=== PATIENT | male | born 1940 | race Caucasian/White ===

== ENCOUNTER → 2023-05-27 08:23 | Outpatient (REF) | payer OTHER, SELFPAY | LOC: MRI 3T 08:23 | PROVIDERS: ATTENDING PHYSICIAN Internal Medicine Gastroenterology; FAMILY PHYSICIAN Internal Medicine | DX: K86.2 Cyst of pancreas (principal) | CPT/HCPCS: 74183; A9575 ==

== ENCOUNTER → 2023-08-05 08:36 | Outpatient (REF) | payer OTHER, SELFPAY | LOC: PAVMRI 08:36 | PROVIDERS: ATTENDING PHYSICIAN Orthopaedic Surgery; FAMILY PHYSICIAN Internal Medicine | DX: M25.562 Pain in left knee (principal) | CPT/HCPCS: 73721 ==

== ENCOUNTER → 2023-12-16 08:53 | Outpatient (REF) | payer OTHER, SELFPAY | LOC: MRI 3T 08:53 | PROVIDERS: ATTENDING PHYSICIAN Physician Assistant Surgical; FAMILY PHYSICIAN Internal Medicine | DX: M54.15 Radiculopathy, thoracolumbar region (principal) | CPT/HCPCS: 72148 ==

== ENCOUNTER → 2024-05-18 14:32 | Outpatient (REF) | payer OTHER, SELFPAY | LOC: EMG 14:32 | PROVIDERS: ATTENDING PHYSICIAN Internal Medicine | DX: G62.9 Polyneuropathy, unspecified (principal) | CPT/HCPCS: 95886; 95911 ==

== ENCOUNTER → 2024-09-07 10:44 | Outpatient (REF) | payer OTHER, SELFPAY ==
[2024-09-07 11:38] LABS: % Basophils 0.6 % (0-2); % Eosinophils 1.7 % (0-6); % Immature Granulocytes 0.3 % (0-0.5); % Lymphocytes 24.9 % (20.5-51.1); % Monocytes 8.6 % (1.7-9.3); % Neutrophils 63.9 % (42.2-75.2); Absolute Eosinophils 0.1 10^3/uL (0-0.7); Absolute Lymphocytes 1.6 10^3/uL (1.2-3.4); Absolute Monocytes 0.6 10^3/uL (0.1-0.6); Absolute Neutrophils 4.2 10^3/uL (1.4-6.5); Hematocrit 43.6 % (39.0-52.0); Hemoglobin 15.1 g/dL (13.0-18.0); Mean Corp Hgb Conc. 34.6 g/dL (33.0-37.0); Mean Corpuscular Hgb 33.1 pg (27.0-31.0); Mean Corpuscular Volume 95.6 fL (80.0-94.0); Mean Platelet Volume 10.1 fL (7.4-10.4); Nucleated Red Blood Cells % 0 % (-); Platelet Count 196 10^3/uL (130-400); Red Blood Cell Count 4.56 10^6/uL (4.70-6.10); Red Cell Dist. Width 12.5 % (11.5-14.5); White Blood Cell Count 6.6 10^3/uL (4.8-10.8)
[2024-09-07 11:48] LABS: ALT (SGPT) 42 U/L (0-50); AST (SGOT) 39 U/L (17-59); Albumin 4.6 g/dl (3.5-5.0); Alkaline Phosphatase 89 U/L (38-126); Blood Urea Nitrogen 44 mg/dl (9-20); Calcium 9.1 mg/dl (8.4-10.2); Carbon Dioxide 28 mmol/L (22-30); Chloride 104 mmol/L (98-107); Glucose 98 mg/dl (70-99); Sodium 140 mmol/L (135-145); Total Bilirubin 0.8 mg/dl (0.2-1.3); Total Protein 6.9 g/dl (6.3-8.2); eGFR 49.87
== END ==
LOC: OLABPV 10:44
PROVIDERS: ATTENDING PHYSICIAN Internal Medicine
DX: K85.90 Acute pancreatitis without necrosis or infection, unspecified (principal); I10 Essential (primary) hypertension
CPT/HCPCS: 36415; 80053; 85025

== ENCOUNTER → 2025-01-19 10:39 | Outpatient (REF) | payer OTHER, SELFPAY | LOC: REG 10:39 | PROVIDERS: ATTENDING PHYSICIAN Orthopaedic Surgery; FAMILY PHYSICIAN Internal Medicine | DX: R53.1 Weakness (principal) | CPT/HCPCS: 36415; 85652 ==